=== PATIENT | female | born 1955 | race Caucasian/White ===

== ENCOUNTER 2021-05-31 22:03 | Emergency (ER) | payer MEDICARE, OTHER ==
[~2021-05-31] VITALS: Ht 157.5 cm; Wt 77.0 kg
[2021-05-31 22:23] LABS: URINE BILIRUBIN - DIPSTICK NEGATIVE (NEGATIVE); URINE BLOOD DIPSTICK TRACE-INTACT (NEGATIVE); URINE COLOR YELLOW; URINE GLUCOSE - DIPSTICK NEGATIVE (NEGATIVE); URINE KETONE NEGATIVE (NEGATIVE); URINE PROTEIN - DIPSTICK NEGATIVE (NEG-TRACE); URINE SPECIFIC GRAVITY 1.015; URINE UROBILINOGEN - DIPSTICK 0.2 E.U./dL (0.2)
[2021-05-31 22:24] LABS: URINE LEUK ESTERASE MODERATE (NEGATIVE); URINE NITRITE - DIPSTICK POSITIVE (Negative)
[2021-05-31 22:33] LABS: URINE BACTERIA RARE hpf; URINE RBC 0-2 RBC/hpf (0-5); URINE SQUAMOUS EPITHELIAL CELL FEW EPI/hpf (0-FEW)
[2021-05-31] MEDS ORDERED: ULTRAM50 MG PO (22:37)
[2021-05-31] MEDS ORDERED: BACTRIM DS1 TAB PO (22:37)
[2021-05-31] MEDS ORDERED: PYRIDIUM200 MG PO (22:37)
[2021-05-31] MEDS ORDERED: TRICOR145 MG PO (22:43)
[2021-05-31] MEDS ORDERED: LISINOPRIL10 MG PO (22:43)
[2021-05-31] MEDS ORDERED: CRESTOR5 MG PO (22:44)
[2021-05-31] MEDS ORDERED: HYDROCHLOROTH12.5 M1 PO (22:45)
[2021-05-31 22:49] VITALS: BP 175/69
== END 2021-05-31 22:54 | disposition home or self-care (01) ==
LOC: ED 22:03
DX: N39.0 Urinary tract infection, site not specified (principal); I10 Essential (primary) hypertension; E78.5 Hyperlipidemia, unspecified